=== PATIENT | female | born 1960 | race Caucasian/White ===

== ENCOUNTER 2020-07-29 04:12 | Inpatient (IN) ==
[2020-07-29] MEDS ORDERED: PANTOPRAZOLE INJ 80 MG in SODIUM CHLORIDE 0.9% 100 ML IV ONE (04:34)
[2020-07-29] MEDS ORDERED: ONDANSETRON 4 MG/2 ML VIAL IV ONE (04:34)
[2020-07-29] MEDS ORDERED: SODIUM CHLORIDE 0.9% 1,000 ML IV STA (04:34)
[2020-07-29] MEDS ORDERED: PANTOPRAZOLE 40 MG VIAL IV ONE (04:39)
[2020-07-29 04:42] LABS: Hematocrit 19.9 VOL% (35.7-47.0); Lymphocytes # 0.3 10*3/uL (1.4-4.0); Lymphocytes % 15.8 % (21.3-54.2); Mean Corpuscular HGB Conc 27.6 GM/DL (32-36); Mean Corpuscular Volume 68.6 FL (87-102); Monocytes % 11.3 % (1.7-12.7); Neutrophils % 72.9 % (38.7-73.9); Red Cell Distribution Width 18.7 % (9.3-17.3)
[2020-07-29 04:48] LABS: INR 1.1; PT Patient Result 11.9 SECS (9.8-11.9); Partial Thromboplastin Time 24.6 SECS (23.9-33.8)
[2020-07-29 04:49] LABS: Hemoglobin 5.5 GM/DL (12.0-16.0); Platelet Count 86 T/CUMM (130-400)
[2020-07-29 05:01] LABS: ABG Base Excess -1.9 MMOL/L (-2.5-2.5); ABG HCO3 22.4 MMOL/L (20-26); ABG Oxygen Saturation 26.4 % (95-100); ABG PCO2 35.1 MM HG (35-48); ABG PH 7.422 (7.35-7.45); ABG TCO2 23.4 MMOL/L (23-27); Allen Test Positive; Pt O2 Delivery Device Room Air
[2020-07-29 05:02] LABS: ABG PO2 22.3 MM HG (80-95)
[2020-07-29 05:04] LABS: Hypochromasia 2+; Lymphocytes 15 % (20-55); Microcytosis 1+; Ovalocytes Slight; Platelet Estimate Decreased; Segmented Neutrophils 77 % (50-85); Total Cells Counted 100
[2020-07-29 05:21] LABS: Albumin 2.7 G/DL (3.4-5.0); Bilirubin,Total 0.4 MG/DL (0.2-1.0); Calcium 7.4 MG/DL (8.5-10.1); Osmolality,Calculated 292.1 MOS/KG (273-304); Total Protein 5.8 G/DL (6.4-8.3)
[2020-07-29 05:53] LABS: ABG Base Excess -4.4 MMOL/L (-2.5-2.5); ABG HCO3 20.7 MMOL/L (20-26); ABG Oxygen Saturation 99.1 % (95-100); ABG PCO2 30.5 MM HG (35-48); ABG PH 7.417 (7.35-7.45); ABG TCO2 18.9 MMOL/L (23-27); Allen Test Positive; Pt O2 Delivery Device Room Air
[2020-07-29] MEDS ORDERED: NICOTINE 21 MG/24 HR PATCH TRANSDERM PRN (06:09)
[2020-07-29] MEDS ORDERED: AZITHROMYCIN INJ 500 MG in SODIUM CHLORIDE 0.9% 250 ML IV ONE (06:09)
[2020-07-29] MEDS ORDERED: SODIUM CHLORIDE 0.9% 1,000 ML IV PRN (06:09)
[2020-07-29] MEDS ORDERED: DEXTROSE 50% 25 GM/50 ML VIAL IV PRN (06:25)
[2020-07-29] MEDS ORDERED: GLUCAGON 1 MG VIAL IM PRN (06:25)
[2020-07-29] MEDS ORDERED: PANTOPRAZOLE INJ 200 MG in SODIUM CHLORIDE 0.9% 250 ML IV SCH (06:30)
[2020-07-29 06:38] LABS: Ferritin 8.5 ng/ml (8-252)
[2020-07-29 06:51] LABS: Risk Ratio 2.35; VLDL CHOLESTEROL 17.6 MG/DL
[2020-07-29] MEDS: SODIUM CHLORIDE 0.9% 1,000 ML IV SCH ×2 (07:30→15:34)
[2020-07-29] MEDS ORDERED: INFLUENZA VIRUS VACCINE 0.5 ML SYRINGE IM ONE (08:37)
[2020-07-29] MEDS: INSULIN REGULAR 100 UNIT/ML SUBCUT SCH ×4 (09:11→23:48)
[2020-07-29] MEDS: DEXAMETHASONE 4 MG/1 ML VIAL IV SCH (10:21)
[2020-07-29] MEDS: ONDANSETRON 4 MG/2 ML VIAL IV PRN ×2 (12:03→16:05)
[2020-07-29] MEDS: PANTOPRAZOLE INJ 200 MG in SODIUM CHLORIDE 0.9% 250 ML IV SCH (14:00)
[2020-07-29] MEDS: OCTREOTIDE 500 MCG in SODIUM CHLORIDE 0.9% 100 ML IV SCH (15:47)
[2020-07-29 16:14] LABS: Hematocrit 24.9 VOL% (35.7-47.0); Hemoglobin 7.3 GM/DL (12.0-16.0); Immature Granulocytes % 0.8 %; Immature Granulocytes Absolute 0.01 #; Lymphocytes # 0.3 10*3/uL (1.4-4.0); Lymphocytes % 21.8 % (21.3-54.2); Mean Corpuscular HGB Conc 29.3 GM/DL (32-36); Mean Corpuscular Volume 74.3 FL (87-102); Neutrophils % 72.4 % (38.7-73.9); Platelet Count 80 T/CUMM (130-400); Red Cell Distribution Width 22.4 % (9.3-17.3); White Blood Count 1.2 T/CUMM (4-12)
[2020-07-29 16:19] LABS: Red Blood Count 3.35 MC/CUMM (3.8-5.5)
[2020-07-29] MEDS ORDERED: IBUPROFEN 400 MG TABLET PO PRN (18:33)
[2020-07-29 19:08] LABS: Albumin 2.7 G/DL (3.4-5.0); Bilirubin,Total 0.6 MG/DL (0.2-1.0); Calcium 7.7 MG/DL (8.5-10.1); Osmolality,Calculated 289.4 MOS/KG (273-304); Potassium 4.1 MMOL/L (3.5-5.1); Total Protein 6.2 G/DL (6.4-8.3)
[2020-07-30] MEDS: OCTREOTIDE 500 MCG in SODIUM CHLORIDE 0.9% 100 ML IV SCH ×3 (01:26→22:49)
[2020-07-30 01:36] LABS: Hematocrit 21.5 VOL% (35.7-47.0)
[2020-07-30 01:37] LABS: Hemoglobin 6.4 GM/DL (12.0-16.0)
[2020-07-30] MEDS ORDERED: SODIUM CHLORIDE 0.9% 1,000 ML IV PRN (01:40)
[2020-07-30 05:51] LABS: Hematocrit 21.5 VOL% (35.7-47.0); Lymphocytes # 0.5 10*3/uL (1.4-4.0); Lymphocytes % 27.5 % (21.3-54.2); Mean Corpuscular HGB Conc 29.8 GM/DL (32-36); Mean Corpuscular Volume 74.4 FL (87-102); Monocytes % 12.6 % (1.7-12.7); Neutrophils % 59.9 % (38.7-73.9); Platelet Count 80 T/CUMM (130-400); Red Blood Count 2.89 MC/CUMM (3.8-5.5); Red Cell Distribution Width 22.3 % (9.3-17.3); White Blood Count 1.7 T/CUMM (4-12)
[2020-07-30 05:52] LABS: Hemoglobin 6.4 GM/DL (12.0-16.0)
[2020-07-30 06:14] LABS: Albumin 2.4 G/DL (3.4-5.0); Bilirubin,Total 0.8 MG/DL (0.2-1.0); Calcium 7.5 MG/DL (8.5-10.1); Osmolality,Calculated 284.3 MOS/KG (273-304); Potassium 3.9 MMOL/L (3.5-5.1); Total Protein 5.7 G/DL (6.4-8.3)
[2020-07-30] MEDS: INSULIN REGULAR 100 UNIT/ML SUBCUT SCH ×4 (06:16→23:34)
[2020-07-30 06:30] LABS: Anisocytosis 1+; Band Neutrophils 12 % (0-10); Lymphocytes 23 % (20-55); Platelet Estimate Decreased; Segmented Neutrophils 53 % (50-85); Tear Drop Cells Few; Total Cells Counted 100
[2020-07-30 06:31] LABS: Hypochromasia 1+
[2020-07-30 07:46] LABS: Hepatitis B Core IgM Quant < 0.05 Index; Hepatitis B Surface Ag Result Non-Reactive (NonReactive); Hepatitis C Virus Ab Quant 0.17 Index; Hepatitis C Virus Ab Result Non-Reactive (NonReactive)
[2020-07-30] MEDS: DEXAMETHASONE 4 MG/1 ML VIAL IV SCH (08:03)
[2020-07-30] MEDS ORDERED: PHENYLEPHRINE 1 MG/10 ML SYRINGE IV ONE (08:47)
[2020-07-30] MEDS ORDERED: LIDOCAINE 2% 5 ML VIAL ONE (08:47)
[2020-07-30] MEDS ORDERED: propofoL 200 MG/20 ML VIAL IV ONE ×2 (08:47→09:27)
[2020-07-30] MEDS ORDERED: KETAMINE 500 MG/10 ML VIAL ONE (08:48)
[2020-07-30] MEDS ORDERED: MIDAZOLAM 2 MG/2 ML VIAL ONE (08:48)
[2020-07-30 09:03] LABS: Hemoglobin 7.3 GM/DL (12.0-16.0)
[2020-07-30] MEDS: SODIUM CHLORIDE 0.9% 1,000 ML IV SCH ×5 (09:40→22:49)
[2020-07-30] MEDS: PANTOPRAZOLE INJ 200 MG in SODIUM CHLORIDE 0.9% 250 ML IV SCH (09:58)
[2020-07-30] MEDS: MORPHINE 4 MG/1 ML VIAL IV PRN ×2 (10:29→18:10)
[2020-07-30] MEDS: PANTOPRAZOLE 40 MG VIAL IV SCH (20:02)
[2020-07-30] MEDS: ZALEPLON 5 MG CAPSULE PO PRN (20:20)
[2020-07-30] MEDS: ACETAMINOPHEN 500 MG TABLET PO PRN (23:34)
[2020-07-31 04:03] LABS: Basophils % 0.4 % (0.0-0.8); Hematocrit 23.7 VOL% (35.7-47.0); Immature Granulocytes % 0.4 %; Immature Granulocytes Absolute 0.01 #; Lymphocytes # 0.5 10*3/uL (1.4-4.0); Lymphocytes % 20.3 % (21.3-54.2); Mean Corpuscular HGB Conc 29.5 GM/DL (32-36); Mean Corpuscular Volume 75.7 FL (87-102); Monocytes % 8.2 % (1.7-12.7); Neutrophils % 70.7 % (38.7-73.9); Platelet Count 78 T/CUMM (130-400); Red Blood Count 3.13 MC/CUMM (3.8-5.5); White Blood Count 2.3 T/CUMM (4-12)
[2020-07-31 04:17] LABS: Albumin 2.6 G/DL (3.4-5.0); Bilirubin,Total 0.6 MG/DL (0.2-1.0); Calcium 7.4 MG/DL (8.5-10.1); Osmolality,Calculated 285.1 MOS/KG (273-304); Total Protein 5.6 G/DL (6.4-8.3)
[2020-07-31 05:14] LABS: Hypochromasia 2+; Microcytosis 1+; Ovalocytes Slight; Platelet Estimate Decreased
[2020-07-31] MEDS: MORPHINE 4 MG/1 ML VIAL IV PRN ×2 (05:28→20:39)
[2020-07-31] MEDS: INSULIN REGULAR 100 UNIT/ML SUBCUT SCH ×3 (05:29→18:40)
[2020-07-31] MEDS ORDERED: SODIUM CHLORIDE 0.9% 1,000 ML IV PRN (07:07)
[2020-07-31] MEDS: PANTOPRAZOLE 40 MG VIAL IV SCH ×2 (08:05→20:40)
[2020-07-31] MEDS: DEXAMETHASONE 4 MG/1 ML VIAL IV SCH (08:16)
[2020-07-31] MEDS: SODIUM CHLORIDE 0.9% 1,000 ML IV SCH ×2 (08:31→11:05)
[2020-07-31] MEDS: OCTREOTIDE 500 MCG in SODIUM CHLORIDE 0.9% 100 ML IV SCH ×3 (08:32→18:40)
[2020-07-31] MEDS: ACETAMINOPHEN 500 MG TABLET PO PRN (09:44)
[2020-07-31] MEDS: ESTRADIOL 1 MG TABLET PO SCH (13:02)
[2020-07-31] MEDS: ZALEPLON 5 MG CAPSULE PO PRN (20:40)
[2020-08-01] MEDS: INSULIN REGULAR 100 UNIT/ML SUBCUT SCH ×5 (02:05→17:38)
[2020-08-01 06:34] LABS: Hematocrit 29.1 VOL% (35.7-47.0); Hemoglobin 9.1 GM/DL (12.0-16.0); Immature Granulocytes % 0.3 %; Immature Granulocytes Absolute 0.01 #; Lymphocytes # 0.4 10*3/uL (1.4-4.0); Lymphocytes % 13.8 % (21.3-54.2); Mean Corpuscular HGB Conc 31.3 GM/DL (32-36); Mean Corpuscular Volume 77.4 FL (87-102); Monocytes % 10.4 % (1.7-12.7); Neutrophils % 75.5 % (38.7-73.9); Platelet Count 71 T/CUMM (130-400); Red Blood Count 3.76 MC/CUMM (3.8-5.5); Red Cell Distribution Width 24.5 % (9.3-17.3); White Blood Count 2.9 T/CUMM (4-12)
[2020-08-01 07:02] LABS: Hypochromasia 1+; Microcytosis 1+; Ovalocytes Slight; Platelet Estimate Decreased
[2020-08-01] MEDS: OCTREOTIDE 500 MCG in SODIUM CHLORIDE 0.9% 100 ML IV SCH ×3 (07:18→12:40)
[2020-08-01] MEDS: ESTRADIOL 1 MG TABLET PO SCH (08:01)
[2020-08-01] MEDS: PANTOPRAZOLE 40 MG VIAL IV SCH (08:02)
[2020-08-01] MEDS: DEXAMETHASONE 4 MG/1 ML VIAL IV SCH (08:03)
[2020-08-01] MEDS ORDERED: REMDESIVIR 200 MG in SODIUM CHLORIDE 0.9% 210 ML IV ONE (14:30)
[2020-08-02] MEDS: INSULIN REGULAR 100 UNIT/ML SUBCUT SCH ×4 (00:41→18:07)
[2020-08-02 05:47] LABS: Hematocrit 29.1 VOL% (35.7-47.0); Immature Granulocytes % 0.4 %; Immature Granulocytes Absolute 0.01 #; Lymphocytes # 0.4 10*3/uL (1.4-4.0); Mean Corpuscular HGB Conc 30.9 GM/DL (32-36); Mean Corpuscular Volume 77.6 FL (87-102); Monocytes % 13.8 % (1.7-12.7); Neutrophils % 66.8 % (38.7-73.9); Platelet Count 66 T/CUMM (130-400); Red Blood Count 3.75 MC/CUMM (3.8-5.5); White Blood Count 2.3 T/CUMM (4-12)
[2020-08-02 06:15] LABS: Albumin 2.6 G/DL (3.4-5.0); Bilirubin,Total 0.8 MG/DL (0.2-1.0); Calcium 8.2 MG/DL (8.5-10.1); Osmolality,Calculated 280.4 MOS/KG (273-304); Potassium 3.2 MMOL/L (3.5-5.1); Total Protein 5.8 G/DL (6.4-8.3)
[2020-08-02 06:24] LABS: Anisocytosis 2+; Platelet Estimate Decreased; Poikilocytosis 1+
[2020-08-02 06:25] LABS: Ovalocytes Few; Tear Drop Cells Few
[2020-08-02] MEDS: ACETAMINOPHEN 500 MG TABLET PO PRN (06:39)
[2020-08-02] MEDS: DEXAMETHASONE 4 MG/1 ML VIAL IV SCH (08:29)
[2020-08-02] MEDS: POTASSIUM CHLORIDE 20 MEQ TABLET PO PRN ×4 (08:29→16:26)
[2020-08-02] MEDS: PANTOPRAZOLE 40 MG TABLET PO SCH (08:29)
[2020-08-02] MEDS: ESTRADIOL 1 MG TABLET PO SCH (08:29)
[2020-08-02] MEDS: REMDESIVIR 100 MG in SODIUM CHLORIDE 0.9% 100 ML IV SCH (08:29)
[2020-08-02] MEDS: ZALEPLON 5 MG CAPSULE PO PRN (20:36)
[2020-08-03] MEDS: INSULIN REGULAR 100 UNIT/ML SUBCUT SCH ×4 (01:55→18:48)
[2020-08-03] MEDS: DEXAMETHASONE 4 MG/1 ML VIAL IV SCH (08:12)
[2020-08-03] MEDS: ESTRADIOL 1 MG TABLET PO SCH (08:13)
[2020-08-03] MEDS: PANTOPRAZOLE 40 MG TABLET PO SCH (08:13)
[2020-08-03] MEDS ORDERED: SODIUM CHLORIDE 0.9% 1,000 ML IV PRN (09:44)
[2020-08-03] MEDS: REMDESIVIR 100 MG in SODIUM CHLORIDE 0.9% 100 ML IV SCH (10:18)
[2020-08-03] MEDS: ZALEPLON 5 MG CAPSULE PO PRN (21:13)
[2020-08-04] MEDS: INSULIN REGULAR 100 UNIT/ML SUBCUT SCH ×5 (00:37→23:41)
[2020-08-04 05:51] LABS: Basophils % 0.4 % (0.0-0.8); Eosinophils % 0.8 % (0.00-10.9); Hematocrit 28.1 VOL% (35.7-47.0); Hemoglobin 8.7 GM/DL (12.0-16.0); Lymphocytes # 0.4 10*3/uL (1.4-4.0); Lymphocytes % 18.6 % (21.3-54.2); Mean Corpuscular Volume 77.6 FL (87-102); Monocytes % 10.5 % (1.7-12.7); Neutrophils % 69.7 % (38.7-73.9); Red Blood Count 3.62 MC/CUMM (3.8-5.5); Red Cell Distribution Width 26.2 % (9.3-17.3); White Blood Count 2.4 T/CUMM (4-12)
[2020-08-04 05:57] LABS: Platelet Count 81 T/CUMM (130-400)
[2020-08-04 06:24] LABS: Hypochromasia 1+; Lymphocytes 25 % (20-55); Microcytosis 1+; Ovalocytes Few; Platelet Estimate Decreased; Segmented Neutrophils 71 % (50-85); Total Cells Counted 100
[2020-08-04 06:30] LABS: Albumin 2.4 G/DL (3.4-5.0); Bilirubin,Total 1.3 MG/DL (0.2-1.0); Calcium 8.1 MG/DL (8.5-10.1); Osmolality,Calculated 277.5 MOS/KG (273-304); Potassium 3.1 MMOL/L (3.5-5.1); Total Protein 5.7 G/DL (6.4-8.3)
[2020-08-04] MEDS: PANTOPRAZOLE 40 MG TABLET PO SCH (08:20)
[2020-08-04] MEDS: DEXAMETHASONE 4 MG/1 ML VIAL IV SCH (08:20)
[2020-08-04] MEDS: ESTRADIOL 1 MG TABLET PO SCH (08:20)
[2020-08-04] MEDS: POTASSIUM CHLORIDE 20 MEQ TABLET PO PRN ×4 (08:20→15:49)
[2020-08-04] MEDS: REMDESIVIR 100 MG in SODIUM CHLORIDE 0.9% 100 ML IV SCH (10:32)
[2020-08-04] MEDS: ACETAMINOPHEN 500 MG TABLET PO PRN (20:31)
[2020-08-04] MEDS: ZALEPLON 5 MG CAPSULE PO PRN (20:31)
[2020-08-05] MEDS: INSULIN REGULAR 100 UNIT/ML SUBCUT SCH ×2 (05:14→13:23)
[2020-08-05 05:57] LABS: Eosinophils % 0.3 % (0.00-10.9); Hematocrit 29.2 VOL% (35.7-47.0); Hemoglobin 8.8 GM/DL (12.0-16.0); Immature Granulocytes % 0.3 %; Immature Granulocytes Absolute 0.01 #; Lymphocytes # 0.5 10*3/uL (1.4-4.0); Lymphocytes % 14.5 % (21.3-54.2); Mean Corpuscular HGB Conc 30.1 GM/DL (32-36); Mean Corpuscular Volume 79.3 FL (87-102); Monocytes % 11.4 % (1.7-12.7); Neutrophils % 73.5 % (38.7-73.9); Red Blood Count 3.68 MC/CUMM (3.8-5.5); Red Cell Distribution Width 26.5 % (9.3-17.3)
[2020-08-05 06:03] LABS: Platelet Count 77 T/CUMM (130-400); White Blood Count 3.3 T/CUMM (4-12)
[2020-08-05 06:17] LABS: Albumin 2.4 G/DL (3.4-5.0); Calcium 8.1 MG/DL (8.5-10.1); Osmolality,Calculated 279.4 MOS/KG (273-304); Potassium 3.4 MMOL/L (3.5-5.1); Total Protein 5.6 G/DL (6.4-8.3)
[2020-08-05 06:28] LABS: Hypochromasia 1+; Microcytosis 1+; Platelet Estimate Decreased
[2020-08-05] MEDS: POTASSIUM CHLORIDE 20 MEQ TABLET PO PRN (09:33)
[2020-08-05] MEDS: PANTOPRAZOLE 40 MG TABLET PO SCH (09:33)
[2020-08-05] MEDS: ESTRADIOL 1 MG TABLET PO SCH (09:33)
[2020-08-05] MEDS: DEXAMETHASONE 4 MG/1 ML VIAL IV SCH (09:34)
[2020-08-05] MEDS: REMDESIVIR 100 MG in SODIUM CHLORIDE 0.9% 100 ML IV SCH (09:40)
[2020-08-05 11:42] VITALS: BP 143/74
== END 2020-08-05 14:54 | disposition home or self-care (01) | DRG 441 ==
LOC: N.ED 04:12 → N.CC 07:30 → SUATTDRO 08:20 → N.CC 08:22 → N.2E 07-31 12:29
PROVIDERS: ADMIT Internal Medicine; ATTEND Internal Medicine
PROC: EGDWEBL (ICD-10-PCS; 2020-07-30 10:35)